=== PATIENT | female | born 1960 | race Caucasian/White ===

== ENCOUNTER → 2017-12-09 13:48 | Outpatient (CLI) | payer OTHER, SELFPAY ==
--- NOTE | 2017-12-09 13:53 | RAD_ITS ---
STUDY: X-RAY - CERVICAL SPINE REASON FOR EXAM: Female, 57 years old. Chronic pain TECHNIQUE: 5 view(s) of the cervical spine were obtained. COMPARISON: None FINDINGS: Disc space narrowing and anterior and posterior osteophyte formation are present at the C5-6 and C6-7 levels. Osseous foraminal stenoses are present on the right at C5-6 and on the left at C4-5, C5-6, and C6-7. Diffuse facet disease. The dens is normal. Prevertebral soft tissues are intact. Straightening of the cervical spine. No fractures are seen. RAD/Cerv Spine 4 or 5 Views IMPRESSION: Degenerative disc disease at C5-6 and C6-7. Osseous foraminal stenoses are present on the right at C5-6 and on the left at C4-5, C5-6, and C6-7. Diffuse facet disease. Electronically Signed: Freddy Manrique MD at 4:55 EST Tel , Service support ,
--- NOTE | 2017-12-09 13:53 | RAD_ITS ---
STUDY: X-RAY - LUMBAR SPINE REASON FOR EXAM: Female, 57 years old. Chronic low back pain TECHNIQUE: For view(s) of the lumbar spine were obtained. COMPARISON: None FINDINGS: Dextroconvex scoliosis. Diffuse spondylosis. Disc space narrowing at every lumbar level. No compression deformities. Diffuse facet disease. Bilateral osseous foraminal stenoses at every lumbar level. Arterial calcifications. RAD/L/S Spine Min 4 Views IMPRESSION: Scoliosis and diffuse degenerative disc and facet disease as described. Electronically Signed: Freddy Manrique MD at 4:56 EST Tel , Service support ,
== END ==
PROVIDERS: Family Provider Family Medicine; PCP Family Medicine; Visit Provider Nurse Practitioner Family
DX: M54.2 Cervicalgia (principal); M54.5 Low back pain
CPT/HCPCS: 72050; 72110

== ENCOUNTER 2024-01-06 11:50 | Observation (INO) | payer OTHER, SELFPAY ==
--- NOTE | 2024-01-02 08:04 | EKG12_ITS ---
Test Reason : PRE OP Blood Pressure : / mmHG Vent. Rate : 060 BPM Atrial Rate : 060 BPM P-R Int : 126 ms QRS Dur : 084 ms QT Int : 418 ms P-R-T Axes : 082 074 068 degrees QTc Int : 418 ms Normal sinus rhythm Normal ECG Confirmed by SLIME AMBROSIO, PEDRO LUIS ([id number]), international editorial producer JUAN ANTONIO FIGUEROA ([id number]) on 01/06/2024 6:48:53 AM Referred By: Alek Hernandez Confirmed By:YASEMIN PALENCIA MD
[2024-01-02 08:55] LABS: Absolute Lymphocyte Count 1.15 X10^3/uL (0.83-4.51); Absolute Neutrophil Count 1.4 X10^3/uL (2.0-7.7); Basophil# 0.04 X10^3/uL; Basophil% 1.3 % (0-1); Eosinophil# 0.11 X10^3/uL; Eosinophils% 3.6 % (0-5); Hemoglobin 13.1 g/dL (12.0-15.0); Lymphocyte # 1.15 X10^3/ul (0.83-4.51); Lymphocyte % 38.1 % (19-41); Mean Corp Hgb Conc 32.8 g/dL (32-36); Mean Corpuscular Hgb 29.6 pg (27.0-32.0); Mean Corpuscular Volume 90.3 fL (81-99); Mean Platelet Vol. 8.4 fl (6.2-12.0); Monocyte# 0.34 X10^3/uL; Monocyte% 11.3 % (0-10); NRBC Flagged by Analyzer 0 % (0-5); Neutrophil # 1.37 X10^3/uL (2.7-7.7); Neutrophil % 45.4 % (47-70); Platelet Count 333 K/mm3 (150-450); RBC Distribution Width CV 12.1 % (11.6-14.6); RBC Distribution Width SD 40.4 fl (35.1-43.9); Red Blood Count 4.43 M/mm3 (4.2-5.4)
[2024-01-02 09:38] LABS: Anion Gap 4 (5-15); BUN 10 mg/dL (7-18); BUN/Creat Ratio 12.1 RATIO (10-20); Calcium,Total 9.5 mg/dL (8.5-10.1); Chloride 105 mmol/L (98-107); Creatinine, Serum 0.82 mg/dL (0.55-1.02); EST Glomerular Filtration Rate 74 mL/min (>60); Est Glom Filt Rate - Afr Amer 90 mL/min (>60); Glucose 93 mg/dL (74-106); Potassium 3.9 mmol/L (3.5-5.1); Sodium Level 135 mmol/L (136-145)
[2024-01-02 09:39] LABS: Magnesium 2.3 mg/dL (1.6-2.6)
[2024-01-02 10:06] LABS: HIV - WCH Non-Reactive (Nonreactive); Hepatitis B Surface Antibody Non-Reactive; Hepatitis C Antibody Non-Reactive (Nonreactive)
[2024-01-03 05:08] LABS: Hepatitis A AB, Total Negative (Negative)
[2024-01-06] VITALS (20 sets, daily range): BP systolic 111–142; BP diastolic 60–84; PULSE 58–100; RESP 14–18; TEMP 36.1–37; O2SAT 91–100; BMI 20.9
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
[2024-01-06 06:22] LABS: Bedside Glucose 50 mg/dL (74-106)
[2024-01-06] MEDS: Acetaminophen 500 MG Tablet 1000 MG PO ×3 (06:29→21:41)
--- NOTE | 2024-01-06 06:30 | RAD_ITS ---
INDICATION: ANTERIOR FUSION C3-4,C4-5, C5-6 EXAMINATION/TECHNIQUE: X-RAY - XR Spine Cervical 2 or 3 Views COMPARISON: Prior study dated: 12/05/2023 FINDINGS: 6 lateral views of the cervical spine were obtained intraoperatively on a C-arm for anterior fusion of C3 to C6. The examination was performed for documentation and was not performed for diagnostic purposes. The fluoroscopy time was 11 seconds. Radiation dosage 0.75 mGy. RAD/Cerv Spine 2 or 3 Views IMPRESSION: Intraoperative exam as described above.. Electronically Signed: Ryan Everett MD at 13:33 EST ,
[2024-01-06] MEDS: Lactated Ringers 1,000 ML 15 ML IV ×3 (06:33→10:54)
[2024-01-06] MEDS: dexAMETHasone 10 MG/ML Vial 8 MG IV (06:35)
[2024-01-06] MEDS: Magnesium 1 GM over 15 mins IV (06:36)
[2024-01-06] MEDS: Dextrose 5%-Lactated Ringers 1,000 ML 100 ML IV (06:59)
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
[2024-01-06] MEDS: Cefazolin 2 GM in 0.9% Normal Saline (100mL Bag) 100 ML IV (07:38)
--- NOTE | 2024-01-06 11:26 | PCM.OPRPT ---
Report of Operation Date of Procedure: 01/06/24 Description of Surgical Findings:: Preoperative diagnosis: C3-6 disc degeneration with stenosis Postoperative diagnosis: C3-6 disc degeneration with stenosis Name of procedure: C3-6 anterior cervical discectomy and fusion with plate instrumentation - Anterior cervical fusion C3-4, CPT code 86069 - Anterior plate instrumentation C3-6, CPT code 42677/59 - Anterior cervical fusion C4-5, CPT code 75675/51 - Anterior cervical fusion C5-6, CPT code 11743/51 - Structural allograft bone with DBX, CPT code 24067 Attending surgeon: Alek Hernandez M.D. Anesthesia: Gen. endotracheal Estimated blood loss: 50 mL Complications: None Instrumentation used: Medtronic [place] Elite plate, LASR corticocancellous block Indications: The patient is a pleasant 63-year-old lady who presented with neck pain, bilateral upper extremity weakness, progressive balance difficulties. MRI showed C3-6 disc degeneration with stenosis, central and foraminal. In order to halt the progression of myelopathy, the patient requested surgical treatment. All risks and benefits of the procedure were explained to the patient. The risks include but are not limited to infection, bleeding, injury to nerves and vessels, vertebral artery injury, spinal cord injury, paralysis, vocal cord paralysis, injury to esophagus, pseudoarthrosis, need for further procedures, adjacent segment degeneration. Procedure: The patient was identified in the preoperative suite using unique patient identifiers. Skin was marked consent was taken and all questions were answered. The patient was then brought back to the operative room and a timeout was performed. General endotracheal anesthesia was given. Intraoperative neuro monitoring leads were applied. The patient was carefully positioned supine on a regular OR table. A lateral view with a C-arm was done to identify the level and to define the incision. The anterior neck was then prepped and draped in the usual fashion. A final timeout was then performed. A transverse skin incision was taken to the left of midline. Subcutaneous tissue was then divided with Bovie. Platysma was identified and cut along the incision with scissors. The fascial interval between the sternocleidomastoid and the larynx was developed. Omohyoid was identified and retracted. The esophagus with the larynx was retracted medially to reach the prevertebral fascia. Marker x-ray was performed with bent spinal needle and disc space and levels were confirmed. Longus coli muscle was elevated on both sides at and above and below C3-6 discs. Self-retaining retractors were then placed. A long handle knife was then used to perform annulotomy at C3-4. Disc fragments were removed with the pituitary. [place] pins were placed in C3 and C4 for disc distraction. Curettes and bur was utilized to remove cartilage from the endplates. Discectomy was performed laterally up to the uncovertebral joints. Posterior osteophytes were thinned down with the bur and adequate decompression in the central and foraminal areas were performed and PLL was thinned out. Once the disc space was prepared, trials of various sizes were utilized. Thorough irrigation was given. 6 mm LASR cortical cancellous allograft bone large footprint was then fashioned in such a way that concavities were burred out inferiorly and superiorly and half cc of DBX (demineralized bone matrix) was squeezed into the cancellous portion. The graft was then inserted into the C3-4 disc space. The retractors were then repositioned and the procedure was repeated for C4-5 and C5-6 discs with complete discectomy. Graft sizes were 6 mm with large footprint at both C4-5 and C5-6. The grafts were found to be in good apposition with good pullout strength. A 55 mm Medtronic [place] Elite plate was then fixed to C3-6 with 16 mm screws. A lateral x-ray was then taken to check the length of the screws. Both AP and lateral x-rays showed good positioning of plate and screws. The locking mechanism over the screw heads was then turned. Thorough irrigation was again given. Hemostasis was achieved. A Anish drain was then inserted. Closure was done with 3-0 Vicryl for the platysma and subcutaneous tissue layers and 4-0 Monocryl for the skin. Closure was done around the drain. Steri-Strips were applied and dressing was done with 4 x 4 gauze and Tegaderm. A cervical collar was then applied. The patient was then woken up from anesthesia extubated and taken to PACU in stable condition. From here, the patient will be transitioned to the floor. Intraoperative neuro monitoring was performed throughout this procedure. Motor evoked potentials were run periodically. All potentials remained at baseline throughout the procedure. I was present for the entire surgery and performed the surgery myself. Admit VTE Documentation VTE Mechan Device Prophylaxis: SCD's Procedures Musculoskeletal [id number]: Other Procedure See Report
--- OUTSIDE RECORDS SUMMARY | 2024-01-06 12:15 | XMS RPT_ITS | CCD ---
Author Name Unknown Address [address] [place] [address] Organization [facility] Care Team Providers Care Supervisor Of Way Name Role Phone Ko Romano DO Primary Care Provider [phone] ORIANA PATEL Attending Unavailable KO ROMANO Referring Unavailable KO ROMANO Primary Care Unavailable KO ROMANO Primary Care Unavailable KO ROMANO Referring Unavailable KO ROMANO Referring Unavailable KO ROMANO Primary Care Unavailable KO ROMANO Attending Unavailable KO ROMANO Primary Care Unavailable Ko Romano DO Primary Care Provider [phone] Allergies Allergy Classification Reported Allergen(s) Allergy Type Date of Onset Reaction(s) Facility (10 sources) Promethazine; Translations: [PROMETHAZINE HCL] Drug Allergy [address] [place] [address] (10 sources) Sulfonamides (Antibiotic); Translations: [SULFA (SULFONAMIDE ANTIBIOTICS)] Propensity to adverse reactions [address] [place] [address] Medications Completed/Discontinued Medications Medication Drug Class(es) Dates [...] 97.39 [degF] Ko Romano DO Work Phone: [facility] 09-20-2023 08:13-0500 Body weight 53.98 kg Ko Romano DO Work Phone: [facility] 09-20-2023 08:13-0500 Diastolic blood pressure 80 mm[Hg] Ko Romano DO Work Phone: [facility] 09-20-2023 08:13-0500 Heart rate 80 /min Ko Romano DO Work Phone: [facility] 09-20-2023 08:13-0500 Respiratory rate 16 /min Ko Romano DO Work Phone: [facility] 09-20-2023 08:13-0500 Systolic blood pressure 146 mm[Hg] Ko Romano DO Work Phone: [facility] Encounters Encounter Date Encounter Type Care Provider [...] Activity Detail Author Start: 01-02-2031 Colonoscopy COLONOSCOPY [facility] Start: 01-02-2031 COLORECTAL CANCER SCREENING COLORECTAL CANCER SCREENING [facility] Start: 01-02-2031 Screening for malign ant neoplasm of colon [facility] Start: 12-14-2025 Lipid 1996 panel - S trevin or Plasma Lipid Screening [facility] Start: 12-14-2025 Lipid panel Lipid Screening [facility] Start: 12-14-2025 LIPID SCREEN LIPID SCREEN [facility] Start: 12-05-2025 PAP TESTING PAP TESTING [facility] Start: 12-05-2025 Screening for malign ant neoplasm of cervix Pap Testing [facility] Start: 09-20-2024 Covid-19 Vaccine ( season) Covid-19 Vaccine () [facility] Immunizations Immunization Date Immunization Notes Care Provider Monty baca 09-20-2023 influenza, injectabl e, quadrivalent, contains preservative Ko Chorison DO Work Phone: [facility] Work Phone: 08-17-2020 influenza, seasonal, injectable Ko Romano DO Work Phone: [facility] Work Phone: 05-27-2006 tetanus and diphther ia toxoids, adsorbed, preservative free, for adult use (2 Lf of tetanus toxoid and 2 Lf of diphtheria toxoid) Ko Romano DO Work Phone: [facility] Payers Date Payer Category Payer Unknown [facility] [id number] 2021-Present [phone] [address] [place] [address] [facility] [id number] 2021 Unknown [id number] Social History Date Type Detail Facility Start: 12-05-2020 End: 09-20-2023 Tobacco smoking status NHIS Occasional tobacco smoker [facility] Work Phone: Start: 12-05-2020 End: 09-20-2023 Tobacco use and exposure Smokeless tobacco non-user [facility] Work Phone: Start: 01-02-2021 End: 12-09-2023 Alcohol intake Current drinker of alcohol (finding) [facility] Start: 06-04-2007 History SDOH Alcohol Comment rare [facility] Start: 01-02-2021 End: 09-20-2023 Tobacco Comment quit 1988, presently vaping (2020) [facility] Start: 1960 Sex Assigned At Not on file [facility] Start: 09-20-2023 End: 12-09-2023 History of Social function [facility] Work Phone: Start: 09-20-2023 End: 12-09-2023 Tobacco use panel [facility] Work Phone: Adult Depression Screening Assessment 0 [facility] Work Phone: Clinical Notes 01-09-2023 to 01-02-2024 [...] having neck surgery with Dr. Hernandez at [facility]. Referral from Pain Management. Patient reports she doesn't need anything from Dr. Romano was just told to let provider know. Vicki Hess RN documented in this encounter [facility] 10-21-2023 Note HNO ID: [id number] Author: Sharee Martinez RT(R) Service: ? Author [...] RT Kelli(R) October 21, 2023 8:03 AM [facility] 10-10-2023 Miscellaneous Notes [employer] calling on behalf of patient. States Prior Authorization for pt's Physical Therapy at [facility] has been denied. Provider may complete a [id number] if necessary. Rosana Jimenez RN documented in this encounter [facility] 10-02-2023 Note HNO ID: [id number] Author: Oriana Patel, PT Service: ? Author [...] Planned: 8 Planned Treatment Interventions: Therapeutic exercise (92873), Neuromuscular re-education (29843), Manual therapy (11260), Therapeutic activities (68015), Self-nursing home management (99317), Patient/Family/Caregiver Education, Body Mechanics Training PLAN FOR [...] exercises was facilita (more content not included)... [facility] 10-02-2023 History of Presen t illness Narrative [...] Planned: 8 Planned Treatment Interventions: Therapeutic exercise (80955), Neuromuscular re-education (01977), Manual therapy (45675), Therapeutic activities (83489), Self-nursing home management (12247), Patient/Family/Caregiver Education, Body Mechanics Training PLAN FOR [...] Stop Time : 947 Oriana Patel PT Program_ID:[id number] Access Code: [email or web address] URL: [email or web address]/ Date: 10-02-2023 Prepared By: Oriana Patel Program Notes Exercises - Seated Cervical Sidebending Stretch - 1 x daily - 7 x weekly - 3 - 3 - Gentle Levator Scapulae Stretch - 1 x daily - 7 x weekly - 3 - 3 - Seated Cervical Retraction - 1 x daily - 7 x weekly - 3 - 10 documented in this encounter [facility] 10-01-2023 Miscellaneous Notes MRI scheduled 10/21. [employer] calls to report pt's MRI w/o contrast has been approved. Approval # [id number] Leona Pedraza LPN documented in this encounter [facility] 09-20-2023 Note HNO ID: [id number] Author: Tami Mock RT(R) Service: Radiology Author [...] RT Amador(R) September 20, 2023 9:32 AM [facility] 09-20-2023 Note HNO ID: [id number] Author: Ko Romano, DO Service: ? 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 Cont (more content not included)... 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 See patient instructions. Ko Romano DO [address] [place] [address] documented in this encounter [facility] 01-31-2023 Miscellaneous Notes Rosemary from [employer] was calling on behalf of the Pts insurance to see if the Pt had been seen by the provider in the past 5 years. Let her know the last appointment was 12/05/20. She reports she will go to medical records for the rest of the information. documented in this encounter [facility] 01-09-2023 Note Patient Outreach (IN TMMN) JUHI CHILD ([id number]) 1960 F Date Time Provider Department 01/09/23 KO ROMANO INTNIRU During your visit today, we recorded the following information about you: Allergies As of Date: 01/09/2023 Noted Allergy Reaction PHENERGAN (PROMETHAZINE HCL) 04/05/2006 SULFA (SULFONAMIDE ANTIBIOTICS) 04/05/2006 Date Reviewed: 01/02/2021 Reviewed by: Jade Peter (Rn) MILANA Thorpe - Fully Assessed Visit Diagnosis:Encounter for screening mammogram for breast cancer [Z12.31] Order(s):[facility] SCREENING [[id number]] Order #: [id number] FUTURE Prescriptions as of 01/14/2023 - Clobetasol [...] 01/09/2023 Noted Resolved MYALGIA AND MYOSITIS NOS [ALR2422] 04/05/2006 ANXIETY STATE NOS [F41.1] 04/05/2006 PANCREATITIS [...] Encounter Status:Closed by EPIC, PRODUSER on 01/14/23 [facility] Encounter for screening mammogram for breast cancer [facility] [place] Diagnosis Cervicalgia- Primary Need for influenza vaccination Need for prophylactic vaccination and inoculation against influenza Paresthesia of skin Disturbance of skin sensation Weakness of both arms Other musculoskeletal symptoms referable to limbs Paresthesia of arm Disturbance of skin sensation Dizziness Dizziness and giddiness [facility] [place] [facility]* Diagnosis Cervicalgia- Primary Paresthesia of skin Disturbance of skin sensation Weakness of both arms Other musculoskeletal symptoms referable to limbs Paresthesia of arm Disturbance of skin sensation Dizziness Dizziness and giddiness [facility] [place] [facility]* Diagnosis Encounter for screening mammogram for breast cancer documented in this encounter [facility] for referral (narrative)* Diagnostic Procedure Only (Routine) - Pending Review Specialty Diagnoses / Procedures Referred By Angel Luis rodrigez Referred To Contact [facility] Diagnoses Encounter for screening mammogram for breast cancer Procedures JAIDEN SCREENING SCREENING MAMMOGRAPHY BI 2-VIEW BREAST INC Ko Zaldivar, DO [address] [place] [address] [facility] [address] [place] [address] Referral ID Status Reason Start Date Expiration Date Visits Requested Visits Authorized [id number] Pending Review Auto-Generat ed Referral 01/17/2022 02/16/2023 1 1 [facility] for referral (narrative)* Diagnostic Procedure Only (Routine) - Pending Review Specialty Diagnoses / Procedures Referred By Contreinier t Referred To Contact [facility] Diagnoses Encounter for screening mammogram for breast cancer Procedures JAIDEN SCREENING SCREENING MAMMOGRAPHY BI 2-VIEW BREAST INC CAD Ko Romano, DO [address] [place] [address] [facility] [address] [place] [address] Referral ID Status Reason Start Date Expiration Date Visits Requested Visits Authorized [id number] Pending Review Auto-Generat ed Referral 01/09/2023 02/08/2024 [facility] Diagnostic Procedure Only (Routine) - Pending Review Specialty Diagnoses / Procedures Referred By Angel Luis rodrigez Referred To Contact [facility] Diagnoses Encounter for screening mammogram for breast cancer Procedures JAIDEN SCREENING SCREENING MAMMOGRAPHY BI 2-VIEW BREAST INC CAD Ko Romano DO [address] [place] [address] [facility] [address] [place] [phone] Referral ID Status Reason Start Date Expiration Date Visits Requested Visits Authorized [id number] Pending Review Auto-Generat ed Referral 12/25/2023 01/23/2025 1 1 [facility] Advance Directives Documents on File Type Date Recorded Patient In House Counsel Expl anation Advance Directive(s) 01/02/2021 11:19 AM Advance Directive(s) 12/19/2020 8:46 AM Reason for Referral Specialty Diagnoses / Procedures Referred By Angel Luis rodrigez Referred To Contact [facility] Diagnoses Cervicalgia Paresthesia of skin Weakness of both arms Paresthesia of arm Dizziness Procedures MRI CERVICAL SPINE WO IVCON MRI SPINAL CANAL CERVICAL W/O CONTRAST MATRL Ko Romano, DO [address] [place] [address] [place] [address] Referral ID Status Reason Start Date Expiration Date Visits Requested Visits Authorized [id number] Pending Review Auto-Generat ed Referral 3 10/19/2024 1 1 Specialty Diagnoses / Procedures Referred By Angel Luis rodrigez Referred To Contact [facility] Diagnoses Cervicalgia Paresthesia of skin Weakness of both arms Paresthesia of arm Dizziness Procedures CONSULT TO PHYSICAL THERAPY PHYSICAL THERAPY EVALUATION HIGH COMPLEX 45 MINS Ko Romano DO [address] [place] [address] [facility] [address] [place] [address] Referral ID Status Reason Start Date Expiration Date Visits Requested Visits Authorized [id number] Pending Review Auto-Generat ed Referral 3 09/19/2024 1 1 Specialty Diagnoses / Procedures Referred By Angel Luis t Referred To Contact [facility] Diagnoses Cervicalgia Paresthesia of skin Weakness of both arms Paresthesia of arm Dizziness Procedures XR CERV OTHER 4V AP/LAT/OBL RADEX SPINE CERVICAL 4 OR 5 VIEWS Ko Romano, DO [address] [facility] [place] [address] [place] [address] Referral ID Status Reason Start Date Expiration Date V isits Requested Visits Authorized [id number] Closed Auto-Generate d Referral 09/20/2023 10/19/2024 1 [...] or prosecute any alcohol or drug abuse patient.[facility] the event this information is protected by the Federal Confidentiality of Alcohol and Drug Abuse Patient Records regulations: The Federal rules restrict any use of the information to criminally investigate or prosecute any alcohol or drug abuse patient.[facility] the event this information is protected by the Federal Confidentiality of Alcohol and Drug Abuse Patient Records regulations: The Federal rules restrict any use of the information to criminally investigate or prosecute any alcohol or drug abuse patient.[facility] the event this information is protected by the Federal Confidentiality of Alcohol and Drug Abuse Patient Records regulations: The Federal rules restrict any use of the information to criminally investigate or prosecute any alcohol or drug abuse patient.[facility] the event this information is protected by the Federal Confidentiality of Alcohol and Drug Abuse Patient Records regulations: The Federal rules restrict any use of the information to criminally investigate or prosecute any alcohol or drug abuse patient.[facility] the event this information is protected by the Federal Confidentiality of Alcohol and Drug Abuse Patient Records regulations: The Federal rules restrict any use of the information to criminally investigate or prosecute any alcohol or drug abuse patient.[facility] the event this information is protected by the Federal Confidentiality of Alcohol and Drug Abuse Patient Records regulations: The Federal rules restrict any use of the information to criminally investigate or prosecute any alcohol or drug abuse patient.[facility] the event this information is protected by the Federal Confidentiality of Alcohol and Drug Abuse Patient Records regulations: The Federal rules restrict any use of the information to criminally investigate or prosecute any alcohol or drug abuse patient.[facility] the event this information is protected by the Federal Confidentiality of Alcohol and Drug Abuse Patient Records regulations: The Federal rules restrict any use of the information to criminally investigate or prosecute any alcohol or drug abuse patient.[facility] Care Teams (unrecognized sec tion and content) Supervisor Of Way Relationship Specialty Start Date End Date Ko Romano DO [address] [place] [address] PCP - General Family Medicine 12/05/[address] Relationship Specialty Start Date End Date Ko Romano DO [address] [place], [place] [address] PCP - General Family Medicine 12/05/[address] Relationship Specialty Start Date End Date Ko Romano DO [address] [place], [place] [address] PCP - General Family Medicine 12/05/[address] Relationship Specialty Start Date End Date Ko Romano DO [address] [place], [place] [address] PCP - General [facility] 12/05/[address] Relationship Specialty Start Date End Date Ko Romano DO [address] [place], [place] [address] PCP - General Family [facility] 12/05/[address] Relationship Specialty Start Date End Date Ko Romano DO [address] [place], [place] [address] PCP - General [facility] 12/05/[address] Relationship Specialty Start Date End Date Ko Romano DO [address] [place], [place] [address] PCP - General [facility] 12/05/20 Reason for Visit (unrecogniz ed section [...] COMPLEX 45 MINS Ko Romano DO [address] [place] [address] [facility] [address] [place] [address] Referral ID Status Reason Start Date Expiration Date Visits Requested Visits Authorized [id number] Pending Review Auto-Generat ed Referral 3 09/19/2024 [...] BE BASED ON THE PRIMARY CLINICAL RECORDS. [facility]. provides no warranty or guarantee of the accuracy or completeness of information in this document.
[2024-01-06] MEDS: Ketorolac 15 MG/ML Vial IV (14:06)
--- NOTE | 2024-01-06 14:09 | PN.HOSP_ITS ---
Reason for Visit Reason for Visit: Neck pain Subjective Subjective Patient is a 63-year-old white female who was admitted electively to [facility] on 01/06/2024 for an anterior cervical fusion at C3-4, C4-5, C5-6 due to C3-C6 disc degeneration and stenosis. She been having ongoing neck pain, bilateral upper extremity weakness and progressive balance difficulties so imaging was pursued and showed degenerative disease at the above levels with stenosis, central and foraminal. In order to halt progression of her myelopathy surgical intervention was required. We have been consulted postoperatively for medical management of her chronic medical issues which include history of migraine headaches, history of tobacco abuse, and chronic pain. Patient was seen postoperatively on the medical floor. Currently complaining of some pain but states she does not know if she when takes medicine or not. I advised her to take some medicine so she can get some rest and help with the pain. She did state that her left eye feels a little bit swollen. Objective Data Objective Data Vital Signs: Vital Signs Temp Pulse Resp BP Pulse Ox O2 Del Method O2 Flow Rate 97.1 F L 100 15 141/82 H 99 Room Air 4 01/06/24 14:00 01/06/24 14:00 01/06/24 14:00 01/06/24 14:00 01/06/24 14:00 01/06/24 14:00 01/06/24 13:45 FiO2 38 01/06/24 12:15 Oxygen Flow Rate (L/min) 4 Oxygen Delivery Method Room Air Weight: 55.248 kg Body Mass Index (BMI) 20.9 Intake & Output: Intake and Output for Last 24 Hours 01/04/24 01/05/24 01/06/24 23:59 23:59 23:59 Intake Total 2212 / 2212 Balance 2212 / 2212 Lab / Micro Data 01/02/24 08:26 01/02/24 08:26 Labs: Laboratory Results - last 24 hr 01/06/24 06:01: POC Glucose 50 L Micro: Microbiology 01/02/24 08:26 Swab (Method) Nasal Screen MRSA/MSSA - Final Radiography Diagnostic Testing: Radiology Impression Cervical Spine X-Ray 01/06/24 06:30 IMPRESSION: Intraoperative exam as described above.. Electronically Signed: Ryan Everett MD at 13:33 EST , Physical Exam Const alert, oriented x3, no apparent distress, average body habitus and well nourished Constitutional Narrative: Middle-aged, white female, lying in bed, c-collar in place with postoperative bandage on the left side of anterior neck with minimal blood staining, appears mildly uncomfortable but not toxic HEENT head/scalp atraumatic and moist oral mucous membranes Head and Scalp: normocephalic Resp normal respiratory effort, no retractions, no use of accessory muscles and clear to auscultation bilaterally Cardio regular rate, regular rhythm, S1 normal heart sound, S2 normal heart sound, no rub, no gallops and no clicks; Negative for no murmurs Cardio Narrative: Patient with a 2 out of 6 systolic murmur loudest at the left lower sternal border GI normal to inspection, nondistended, normoactive bowel sounds, soft to palpation and non-tender Extremity no clubbing, cyanosis or edema Extremity Narrative: Pedal and radial pulses are 2+ Neuro oriented x3, moves all extremities and no focal motor deficits Speech: speech normal Assessment & Plan Assessment/Plan (1) Cervical myelopathy: (2) Cervicalgia: PLAN: Plan Neck pain due to cervical spine stenosis and degenerative disc disease -Postop day 0 anterior cervical fusion of C3-C6 -Pain management per primary service -Would recommend bowel regimen Left eye swelling -Etiology unclear but may be related to positioning during surgery -Continue to monitor -eye is not erythematous and has no drainage History of migraine headaches -As needed med pain medication available -Patient is not on any abortive medication as an outpatient Tobacco abuse -Strongly recommend cessation for overall health but also to assist with healing of her cervical spine surgery -We can give her nicotine patch if she requires DVT prophylaxis -Per primary service Charges/Coding Visit Charges Inpatient E&M: 33424 [facility] Hosp L1
[2024-01-06] MEDS: dexAMETHasone 4 MG/ML Vial IV ×2 (14:12→19:47)
--- NOTE | 2024-01-06 14:15 | SUR.PHASEI ---
patient awaiting room on ms3
[2024-01-06] MEDS: oxyCODONE 5 MG Tablet PO ×2 (15:30→19:46)
[2024-01-06] MEDS: Cefazolin 1 GM/50 ML BAG IV (16:01)
[2024-01-06] MEDS: Ensure Surgery 237 ML LIQUID PO (18:38)
[2024-01-06] MEDS: Lactated Ringers 1,000 ML 100 ML IV (18:38)
[2024-01-06] MEDS: Methocarbamol 500 MG Tablet 1000 MG PO (19:46)
[2024-01-06] MEDS: Senna/Docusate Sodium 1 Tablet 2 TABLET PO (21:41)
[2024-01-06] MEDS: Morphine 4 MG/ML Syringe IV (21:42)
[2024-01-07] MEDS: Cefazolin 1 GM/50 ML BAG IV (00:08)
[2024-01-07 01:55] VITALS: BP 121/68; PULSE 72; RESP 16; TEMP 36.6; O2SAT 97
[2024-01-07] MEDS: dexAMETHasone 4 MG/ML Vial 2 MG IV ×2 (02:20→07:47)
[2024-01-07] MEDS: oxyCODONE 5 MG Tablet PO ×2 (04:04→11:42)
[2024-01-07] MEDS: Ketorolac 15 MG/ML Vial IV (04:50)
[2024-01-07] MEDS: Acetaminophen 500 MG Tablet 1000 MG PO (05:23)
[2024-01-07 05:56] LABS: Hematocrit 33.8 % (37-47); Hemoglobin 11.6 g/dL (12.0-15.0); Mean Corp Hgb Conc 34.3 g/dL (32-36); Mean Corpuscular Hgb 30.8 pg (27.0-32.0); Mean Corpuscular Volume 89.7 fL (81-99); Mean Platelet Vol. 8.7 fl (6.2-12.0); Platelet Count 278 K/mm3 (150-450); RBC Distribution Width CV 12.1 % (11.6-14.6); RBC Distribution Width SD 39.4 fl (35.1-43.9); Red Blood Count 3.77 M/mm3 (4.2-5.4)
[2024-01-07 05:58] VITALS: BP 118/68; PULSE 64; RESP 16; TEMP 36.6; O2SAT 100
[2024-01-07 06:54] LABS: Anion Gap 9 (5-15); BUN 8 mg/dL (7-18); BUN/Creat Ratio 9.7 RATIO (10-20); Calcium,Total 9.1 mg/dL (8.5-10.1); Chloride 103 mmol/L (98-107); Creatinine, Serum 0.83 mg/dL (0.55-1.02); EST Glomerular Filtration Rate 74 mL/min (>60); Est Glom Filt Rate - Afr Amer 89 mL/min (>60); Estimated Creatinine Clearance 59.91 ml/min; Glucose 164 mg/dL (74-106); Potassium 4.3 mmol/L (3.5-5.1); Sodium Level 137 mmol/L (136-145)
[2024-01-07 07:35] VITALS: BP 123/73; PULSE 70; RESP 18; TEMP 37.2; O2SAT 97
--- NOTE | 2024-01-07 07:43 | RAD_ITS ---
INDICATION: s/p ACDF -- pls do upright AP, Lat EXAMINATION/TECHNIQUE: X-RAY - XR Spine Cervical 2 or 3 Views COMPARISON: Prior study dated: 12/05/2023 FINDINGS: VERTEBRAE: Preserved vertebral body height. No fracture. No spondylolisthesis. Straightening of the cervical spine DISCS: Status post anterior fusion of C3, C4, C5 and C6 with anterior plate and screws and disc implants at these levels. Narrowing of C6-C7 disc spaces. NECK SOFT TISSUES: Prevertebral soft tissue swelling consistent with recent surgery. LUNG APICES: Clear. RAD/Cerv Spine 2 or 3 Views IMPRESSION: Status post anterior fusion of the cervical spine as described above. Electronically Signed: Ryan Everett MD at 9:17 EST ,
[2024-01-07] MEDS: Ensure Surgery 237 ML LIQUID PO ×2 (07:47→11:42)
[2024-01-07] MEDS: 0.9% Saline Lock 10 ML Syringe IV (07:47)
[2024-01-07] MEDS: Morphine 4 MG/ML Syringe IV (07:48)
--- NOTE | 2024-01-07 09:37 | CASEMGMT ---
MILANA POST Assessment: Face to Face with pt for initial transition planning/care coordination assessment. MILANA POST introduced self and role at [facility], pt voices understanding and consents to assessment. Pt is A&O x4 and answers all questions appropriately at this time. Pt lying in bed in neck brace with at bedside. Care providers, pharmacy, and demographics verified/updated. Admitting Dx: ant cervical fusion C3-4 PCP:Trino Specialists:trent Hernandez Pharmacy: [facility] Insurance: [employer] Exchange Plan Prescription Benefit: yes LNOK: Baljit Ren, ; Lizbeth Barrow, friend Living Arrangements: Pt lives with in a single story home with 3 steps to enter without a rail. Pt reports she is I in ADL's and denies concerns at home. Transportation: Pt drives self and denies concerns with transportation. Pt will transport pt until she can drive again. DME:[facility] HHC/SNF: Pt has hx of HHC but cannot recall the name of the agency, denies SNF. Pt states no concerns with going home at time of dc. Pt states no further concerns/needs. CM to follow. Therapy to [facility]. Advised pt to ask CM if any further question/concerns/needs arise, voices understanding. Pt Goal: Home Plan: Home, pending therapy deng Amaya RN, CM
[2024-01-07] MEDS: Senna/Docusate Sodium 1 Tablet 2 TABLET PO (09:51)
[2024-01-07] MEDS: Meloxicam 15 MG Tablet PO (09:51)
[2024-01-07] MEDS: Methocarbamol 500 MG Tablet 1000 MG PO (09:51)
--- NOTE | 2024-01-07 10:11 | PCM.PN.HOSP ---
Reason for Visit Reason for Visit: Diagnoses Disease of spinal cord, unspecified (01/06/24) Cervicalgia (01/06/24) Encounter for other preprocedural examination (01/06/24) Subjective Subjective Patient was seen yesterday afternoon by medicine as a consult for postoperative medical management after her cervical spine fusion procedure. No acute events overnight. Patient seen at bedside this morning. Patient was laying back in bed comfortably, conversing normally, no acute distress. She did have her neck brace on and therefore had limited movement during our encounter. Stated she had gotten out of bed this morning to use the restroom and had no issues with walking around. Denies any significant numbness and tingling in upper extremities currently. No other acute concerns this time. Objective Data Objective Data Vital Signs: Vital Signs Temp Pulse Resp BP Pulse Ox O2 Del Method O2 Flow Rate 98.9 F 70 18 123/73 H 97 Room Air 4 01/07/24 07:35 01/07/24 07:35 01/07/24 07:35 01/07/24 07:35 01/07/24 07:35 01/07/24 07:35 01/06/24 13:45 FiO2 38 01/06/24 12:15 Oxygen Flow Rate (L/min) 4 Oxygen Delivery Method Room Air Weight: 55.248 kg Body Mass Index (BMI) 20.9 Intake & Output: Intake and Output for Last 24 Hours 01/05/24 01/06/24 01/07/24 23:59 23:59 23:59 Intake Total 3383.5 / 3383.5 1050 / 1050 Balance 3383.5 / 3383.5 1050 / 1050 Lab / Micro Data 01/07/24 05:13 01/07/24 05:13 Labs: Laboratory Results - last 24 hr 01/07/24 05:13: WBC 10.0, RBC 3.77 L, Hgb 11.6 L, Hct 33.8 L, MCV 89.7, MCH 30.8, MCHC 34.3, RDW Std Deviation 39.4, RDW Coeff of Darnell 12.1, Plt Count 278, MPV 8.7, Sodium 137, Potassium 4.3, Chloride 103, Carbon Dioxide 25.0, Anion Gap 9, BUN 8, Creatinine 0.83, Estim Creat Clear Calc 59.91, Est GFR (MDRD) Af Amer 89, Est GFR (MDRD) Non-Af 74, BUN/Creatinine Ratio 9.7 L, Glucose 164 H, Calcium 9.1 Micro: Microbiology 01/02/24 08:26 Swab (Method) Nasal Screen MRSA/MSSA - Final Radiography Diagnostic Testing: Radiology Impression Cervical Spine X-Ray 01/06/24 06:30 IMPRESSION: Intraoperative exam as described above.. Electronically Signed: Ryan Everett MD at 13:33 EST , Cervical Spine X-Ray 01/07/24 07:43 IMPRESSION: Status post anterior fusion of the cervical spine as described above. Electronically Signed: Ryan Everett MD at 9:17 EST , Physical Exam Const alert, oriented x3, no apparent distress, average body habitus, healthy appearing and well nourished Constitutional Narrative: Pleasant middle-aged female, lying comfortably in bed with neck brace on, conversing normally, no acute distress. General Appearance: cooperative, comfortable, well kempt and well developed HEENT normocephalic, head/scalp atraumatic, hearing grossly normal bilaterally, nasal mucous membranes and turbinates normal and moist oral mucous membranes Eyes PERRL, EOMs intact bilaterally and conjunctivae normal Neck Neck Narrative: Neck brace in place. Chest inspection of chest normal Resp normal respiratory effort, normal air movement, no use of accessory muscles and clear to auscultation bilaterally Cardio regular rate, regular rhythm, no murmurs and peripheral pulses 2+ throughout GI normal to inspection, nondistended, normoactive bowel sounds, soft to palpation, non-tender and non-distended Extremity normal to inspection, full ROM and no pedal edema Skin no rashes or lesions noted Neuro moves all extremities and no focal motor deficits Speech: speech normal Psych mental status grossly normal Assessment & Plan Assessment/Plan (1) Cervical myelopathy: PLAN: Plan Patient is a 63-year-old female who presented to [facility] on 01/06/2024 for planned orthopedic procedure. Medicine consulted postoperatively for medical management. 1. Cervical myelopathy ? Orthopedics primary. S/p anterior cervical fusion C3-C6 on 01/05. No perioperative complications. ? Management per orthopedics. PT/OT/case management following. 2. Left eye swelling, improving ? Likely secondary to positioning during surgery. Notably no erythema around the eye and no eye drainage. Improved on postop day 1, continue to monitor. 3. History of migraine headaches ? As needed pain medications available as above. Patient not on any abortive medications as an outpatient. 4. Tobacco abuse ? Strongly recommended cessation for overall health but also to assist with healing of her cervical spine surgery. Nicotine replacement therapy available as needed. DVT prophylaxis: Per primary service. Total clinical time spent by myself addressing the patient's medical issues, reviewing all the data, and collaborating with patient's care team: 25 minutes. Charges/Coding Visit Charges Inpatient E&M: 31342 [facility] Hosp L1
[2024-01-07 13:08] VITALS: BP 123/83; PULSE 57; RESP 18; TEMP 36.8; O2SAT 99
== END 2024-01-07 13:20 | disposition home or self-care (01) ==
LOC: SDC 11:58 → MS3 17:28
PROVIDERS: Anesthesiology; Admitting Provider Orthopaedic Surgery Orthopaedic Surgery of the Spine; PCP Student in an Organized Health Care Education/Training Program; Referring Provider Orthopaedic Surgery Orthopaedic Surgery of the Spine; Visit Provider Orthopaedic Surgery Orthopaedic Surgery of the Spine
PROC: (CPT 22551; principal; 2024-01-06 07:00)
DX: M50.020 Cervical disc disorder with myelopathy, mid-cervical region, unspecified level (principal); M48.02 Spinal stenosis, cervical region; G89.29 Other chronic pain; F17.290 Nicotine dependence, other tobacco product, uncomplicated; R22.0 Localized swelling, mass and lump, head
CPT/HCPCS: 22551; 22552 ×2; 20931; 22845; 00670; 36415; 72040; 76000; 80048; 82962; 83735; 85025; 85027; 86703; 86706; 86708; 86803; 86850; 86900; 86901; 87081; 93005; 94668; 96361; 96365; 96375; 96376; 97161; 99221; C1713; J7120; A4216; G0378; J2405; J3475

== ENCOUNTER 2024-04-21 07:30 | Outpatient (RCR) | payer OTHER, SELFPAY ==
--- NOTE | 2024-02-25 09:49 | HP.PTEVAL_ITS ---
Patient's Visit Information Visit Information Visit Information: JEMIMA BUTLER is a 63 year old F referred to Physical Therapy by Dr. Alek Hernandez MD with a diagnosis of cervical spinal fusion C3-C6. Date of Evaluation: 02/25/24 Physical Therapist: GENOVEVA Garvin Visit Plan Frequency: 2x /Week Duration: 6 Weeks Plan: 2X/ week for 6 weeks for c-spine AROM, MT to B c-spine musculature to loosen muscle tension and improve ROM, Light Postural exercises, balance (gait with horizontal head turns and gait with EC) with HEP HEP: flex/ext, SB B and ROT B Subjective Subjective: She had a cervical fusion C3-C6 discectomy and fusion with plates on january 06, 2024 and she had She has had the collar on for so long and the collar was on for 6 weeks. She has decreased ROM of her neck and painful at end range. She is hoping to sleep better and hoping her DAVIS go away. She has only had slight DAVIS since then. She is feeling like some of her muscles are relaxing. She was having arm numbness and could not hold anything. She does ot feel that her arms are still weak. She is allowed to lift a gallon of milk at this point. said that she is healing. She has some balance issues prior to surgery but she thinks that it is getting better. Pain Neck pain: Pain Intensity (Out of 10): 0 Objective Objective: She is R handed R 65# and L 55# Bicep reflex R 2+/3 and L 1+/3 Full B shoulder AROM B shoulder MMT: flexion 4/5 and abd 4/5, ER 4/5 and IR 4+/5 C-spine AROM: flex 10% and Ext 25%, Rot R 25% and L 25% (increase pain), R SB 10 and L 5% FGA: 21 hard for her to walk with EC and walk with horizontal head turns Palpation: tender over mid and lower trap, c-spine paraspinals, and levator Posture: slightly rounded shoulders Balance/Special Test Scores Functional Gait Assessment Score: 21 % Disability: 30.0000 Oswestry Neck Score: 14 Goals Goal 1:: I HEP Goal Time Frame: 6-8 Weeks Goal 2:: Increase neck AROM (at the initial eval: C-spine AROM: flex 10% and Ext 25%, Rot R 25% and L 25% (increase pain), R SB 10 and L 5%) Goal Time Frame: 6-8 Weeks Goal 3:: Increase balance (FGA was 21 at eval and struggled with horizontal head turns and gait and walking with EC) Goal Time Frame: 6-8 Weeks Rehabilitation Potential Rehabilitation Potential: Good Anticipated Interventions Patient/Client Instruction: Educate patient on: Condition and Plan of Care For the Purpose of:: To decrease pain, To increase ROM, To improve nutrient delivery to tissue, To improve muscle performance and motor function, To improve ability to perform ADL's, To increase tolerance to activity/condition/position, To improve performance and independence with ADL's, To decrease level of supervision to perform tasks, To improve ability of physical actions for home/community/work/leisure, To improve gait and locomotor functions, To improve health of tissue, To decrease soft tissue restriction, To increase flexibility/ROM and To improve balance Therapeutic Exercise to Include: Strength training, Endurance training, Balance training, Postural training, Flexibilty training, Gait and locomotor training, Neuromotor development, Passive ROM, Active ROM and Scapular Strength/Stabilization For the Purpose of:: To decrease pain, To decrease swelling/inflammation, To increase ROM, To increase oxygenation perfusion, To improve muscle performance and motor function, To improve ability to perform ADL's, To increase tolerance to activity/condition/position, To improve performance and independence with ADL's, To decrease level of supervision to perform tasks, To improve ability of physical actions for home/community/work/leisure, To improve gait and locomotor functions, To improve health of tissue, To decrease soft tissue restriction and To increase flexibility/ROM Functional Training to Include: Gait training For the Purpose of:: To improve safety with gait Manual Therapy Techniques to Include: Passive ROM and Soft tissue mobilization For the Purpose of:: To decrease pain, To increase ROM, To improve nutrient delivery to tissue, To improve muscle performance and motor function, To improve health of tissue, To decrease soft tissue restriction and To increase flexibility/ROM Text: Thank you for the opportunity to evaluate your patient. For Medicare and Medicare HMO plans, please review the plan of care and approve it. It will need to be FAXED BACK to us at [phone] for Medicare purposes. For Medicare only, by signing this I certify the plan of care. Please let me know if there are questions or concerns regarding this plan of care. Physician Signature: Date :
--- NOTE | 2024-04-21 13:28 | HP.PTDCSUM ---
Discharge Summary D/C summary: It has been my pleasure to treat JEIMMA BUTLER referred by Dr. Alek Hernandez MD, with the diagnosis of cervical spinal fusion C3-C6 for a total of 13 visit(s). Discharge Date: Please see the following information for a summary of their discharge status. Subjective Subjective: Pt feels good and will do some self pay massages. She feels comfortable with her HEP Pain Neck pain: Pain Intensity (Out of 10): 2 Overall Improvement % Improvement: 95 Objective Objective/Function: Pt felt great walking out today C-spine AROM: flex 50% and Ext 40%, Rot R 50% and L 50 Goals Goal 1:: I HEP Goal Progress: Goal Met Goal 2:: Increase neck AROM (at the initial eval: C-spine AROM: flex 10% and Ext 25%, Rot R 25% and L 25% (increase pain), R SB 10 and L 5%) Goal 3:: Increase balance (FGA was 21 at eval and struggled with horizontal head turns and gait and walking with EC) Goal Progress: Progressing Plan Plan: DC PT to HEP D/C Information d/c sentence: If there are questions or concerns regarding this patient's physical therapy, please feel free to call me at [phone]. Thank you for the referral of this patient. Sincerely, Cara Metz, MPT Balance/Gait/Functional tests Balance/Special Test Scores Functional Gait Assessment Score: 21 % Disability: 30.0000 Oswestry Neck Score: 4 Improvement % Improvement: 95
== END 2024-04-21 19:00 | disposition home or self-care (01) ==
LOC: PT 07:30
PROVIDERS: PCP Student in an Organized Health Care Education/Training Program; Referring Provider Orthopaedic Surgery Orthopaedic Surgery of the Spine; Visit Provider Orthopaedic Surgery Orthopaedic Surgery of the Spine
DX: Z98.1 Arthrodesis status (principal)
CPT/HCPCS: 97110; 97140; 97161; 97530